=== PATIENT | female | born 2000 | race Caucasian/White ===

== ENCOUNTER → 2020-12-21 09:22 | Outpatient (BNVA) | payer MEDICAID, SELFPAY | PROVIDERS: Visit Provider Nurse Practitioner Family | DX: N93.9 Abnormal uterine and vaginal bleeding, unspecified (principal) | CPT/HCPCS: 81025; 84702 ==

== ENCOUNTER 2021-02-18 13:50 | Observation (INO) | payer MEDICAID, SELFPAY ==
[2021-02-18] VITALS (77 sets, daily range): BP systolic 72–129; BP diastolic 33–74; PULSE 53–135; RESP 15–22; TEMP 36.1–37.5; O2SAT 96–100; BMI 35.0
[2021-02-18] MEDS: lactated ringers 1,000 ML 999 ML IV (10:09)
--- NOTE | 2021-02-18 10:11 | US_ITS ---
WS: [id number] TRANSABDOMINAL PELVIC AND TRANSVAGINAL PELVIC ULTRASOUND HISTORY: miscarriage, check for retained products COMPARISON: None available. Uterus: 9.7 cm x 6.4 cm x 5.6 cm. Enlarged anteverted uterus. Endometrium: 2.6 cm. Thickened heterogeneous endometrial canal. There is a small amount of fluid and heterogeneous products within the endometrium. Very mild increased vascularity. Cannot definitely con firm retained products of the conception. Right ovary: 2.7 cm x 2.4 cm x 1.3 cm. Negative. Left ovary: 2.9 cm x 3.1 cm x 1 cm. Negative. No free fluid. US/US pelvic with transvaginal IMPRESSION: Thickened heterogeneous endometrium. No discrete retained placental tissue. The re is thickening of the endometrium but these findings may all be related to th e recent state. Small amount of retained placental tissue cannot be excluded but there is no large or obvious placental retention.
--- NOTE | 2021-02-18 10:11 | PC.NURSE ---
Call to [facility] in pharmacy and requested expediting Fentanyl verification due to situation.
[2021-02-18 10:12] LABS: Hemoglobin 12.3 g/dL (11.5-15.3); Mean Corpuscular HGB Conc 33.2 g/dL (30.0-36.0); Mean Corpuscular Hemoglobin 28.7 pg (28.0-34.0); Mean Corpuscular Volume 86.2 fL (81-99); Mean Platelet Volume 9.8 fL (7.4-10.4); Platelet Count 346 10^3/cmm (130-400); Red Blood Count 4.29 10^6/uL (4.1-5.3); Red Cell Distribution Width 12.7 % (12.1-15.1)
[2021-02-18] MEDS: fentaNYL 50 mcg/mL INJ 2mL 100 MCG IVP (10:14)
[2021-02-18] MEDS: ondansetron 2 mg/ML SDV 2 mL 4 MG IVP (10:35)
--- NOTE | 2021-02-18 10:51 | PC.NURSE ---
1000 Dr Thapa at bedside doing pelvic exam.
--- NOTE | 2021-02-18 10:54 | PC.NURSE ---
0950 Patient arrived by EMS at this time, patient had very heavy bleeding upon arrival to OB department. Patient went to doctors office on Sunday and was was told that baby had no heart rate via ultrasound. Dr Thapa gave her cytotec to take at home. Patient took first dose on Sunday and start bleeding shortly after taking the first dose. Patient reports having period like bleeding over the last several days since Sunday. Patient states that she was at the grocery store and started having heavy vaginal bleeding and they called EMS. When patient arrived she was found to have soaked through her pants and had large amount of bleeding pooled under her bottom on the EMS cot. Patient was transferred over to OB bed and pants and underwear removed, Patient was found to have 6 large clots measuring the size of a large dinner plate. Dr Thapa was called upon patients arrival to the department and said that he was on his way. Patient was changed into gown and set up for pelvic exam. IV was established in left AC [address] Thapa gave orders for LR bolus and lab to be drawn and orders to be placed. Once Dr Thapa arrived pelvic exam was preformed and patient was given IV pain medicine per Dr Spencer orders. Dr Thapa removed several clots from inside the vagina and ordered ultrasound. Patient was cleaned up and gown changed. Patients bed was changed at this time and fresh chux were placed under patient for accurate calculations of blood loss.
[2021-02-18 10:56] LABS: Absolute Eosinophils 0.5 10^3/cmm (0.0-0.7); Absolute Neutrophil 9.8 10^3/cmm (1.4-6.5); Absolute Segmented Neutrophil 9.1 10/cmm (1.6-7.1); Band Neutrophils Absolute 0.7 10^3/cmm (0.0-1.2); Basophils Absolute 0.1 10^3/cmm (0.0-0.2); Eosinophils 4 %; Lymphocytes 19 %; Lymphocytes Absolute 2.7 10^3/cmm (1.2-3.4); Monocytes Absolute 0.8 10^3/cmm (0.1-0.6); Platelet Estimate Normal (Normal); Segmented Neutrophils 65 %; Total Cells Counted 100 (0-100)
[2021-02-18] MEDS: lactated ringers 1,000 ML 125 ML ×2 (11:20→15:19)
--- NOTE | 2021-02-18 12:41 | PM.OBGYHP ---
Providers/Chief Complaint Chief Complaint: bleeding HPI PHYSICAL SCIENCE PROFESSOR History of Present Illness Deacon Link is a 20 year old female who was noted a couple weeks ago to have a demise at around 6 to 7 weeks gestation. She was given misoprostol at home after explanation of benefits and risks and she took the misoprostol times several doses with passing a large amount of blood and what she felt was tissue and her pain and bleeding stopped. However, beginning last evening she began cramping again and bleeding fairly large amount. She discussed with this physician and he recommended that she come to the hospital. She was brought to the OB department where evaluation found her to have a large amount of clots coming from her vaginal area. Speculum exam was done demonstrating a moderate amount of clots but no significant tissue noted. The uterus was firm at that time and clots were completely gone from the vaginal vault and cervix. Since that time she suddenly began cramping more and passing clots. She has gotten very pale and hypotensive. Initial hemoglobin was 12 and follow-up hemoglobin is pending. Ultrasound has been done but results are pending. Again, the vaginal vault was swept with bimanual exam and moderate clots removed from the vaginal area and the uterus remained firm. It does feel smaller than it did however. Present Details Date of Last Menstrual Period: 11/11/20 Calculated Date of Delivery: 08/18/21 Gestational Age Based on Last Menstrual Period: 14 Review of Systems Const: Reports: fatigue; Denies: fever(s) or chills Card: Reports: pre-syncope (Blood pressure has dropped since passing a lot of blood clots. She is pale); Denies: chest pain, palpitations, edema or orthopnea Resp: Denies: dyspnea, productive cough or non-productive cough GI: Reports: abdominal pain (Pain over the suprapubic area with cramps occasionally.); Denies: nausea, vomiting, dysphagia, diarrhea or constipation : Reports: vaginal bleeding (Status post demise at around 7 weeks gestation.) Musc: Denies: back pain, extremity pain or joint pain Neuro: Denies: weakness in extremities, difficulty walking or involuntary movements Psych: Reports: anxiety Medications/Allergies Home Medications Medication Instructions Recorded Confirmed Last Taken Type No Known Home Medications 12/21/20 12/21/20 Unknown History albuterol sulfate 90 mcg/actuation 2 puff INHALATION Q6H PRN #8.5 g 12/21/20 12/21/20 Unknown Rx aerosol inhaler amoxicillin 875 mg tablet 875 mg PO BID #20 tab 12/21/20 12/21/20 Unknown Rx promethazine-DM 6.25 mg-15 mg/5 mL 5 ml PO Q6H PRN #150 ml 12/21/20 12/21/20 Unknown Rx oral syrup Allergies Allergy/AdvReac Type Severity Reaction Status Date / Time hydrocodone Allergy Intermediate rash Verified 01/21/21 10:26 PFSH PHYSICAL SCIENCE PROFESSOR PFSH: Family History Father Hypertension Lung disease Mother Stroke Vitals/I&O/Wt Last Vital Signs Temp 96.9 F L 02/18/21 09:50 Pulse 75 02/18/21 12:35 Resp 18 02/18/21 10:14 BP 94/51 02/18/21 12:33 Pulse Ox 100 02/18/21 12:35 Weight last 48 hrs Weight 89.811 kg Physical Exam Const: COMMON NORMALS: well nourished GENERAL APPEARANCE: cooperative, anxious and ill appearing (She is fairly pale and mildly diaphoretic.) ORIENTATION/CONSCIOUSNESS: Yes awake Resp: COMMON NORMALS: normal respiratory effort, No retractions, No use of accessory muscles and clear to auscultation bilaterally Cardio: COMMON NORMALS: regular rate and regular rhythm GI: COMMON NORMALS: Normal to inspection, nondistended, normoactive bowel sounds present and Soft to palpation; negative for non-tender (Suprapubic tenderness to palpation.) : EXTERNAL FEMALE EXAM: Yes normal appearance of the urethra SPECULUM EXAM - VAGINA: Yes vaginal bleeding (Moderate blood clots in the vaginal vault which have been cleared out twice) Amount: large/heavy SPECULUM EXAM - CERVIX: Yes Cervical os open (Approximately 1 to 2 cm.) and No Tissue present in the cervical os Back/Pelvis: COMMON NORMALS: thoracic and lumbar spine normal to inspection; negative for no CVA tenderness Extremity: COMMON NORMALS: normal to inspection, no calf tenderness and no pedal edema Neuro: COMMON NORMALS: moves all extremities, no focal motor deficits and no sensory deficits noted Psych: COMMON NORMALS: cooperative MOOD & AFFECT: Yes anxious Data : 02/18/21 10:00 A&P Assessment and plan (1) Spontaneous complicated by delayed or excessive hemorrhage: Patient was given misoprostol as an outpatient approximately 2 weeks ago which she took and passed what she felt was tissue. However, she began bleeding and cramping this morning on the day she was due to follow-up with a another quantitative hCG. It is felt that she continues to have tissue in the uterus and may very well require dilatation and curettage. I discussed with Dr. Dean and he will be on standby if needed. Status: Acute Attestations Medical Necessity Statement*: Patient requires at least observation stay in the hospital. We will proceed with what we need to do to stop her bleeding and monitor hemoglobin hematocrit and treat as indicated. Coding Level of Care Code Acute Roll Up Operator for Mike Polanco Diagnoses Spontaneous complicated by delayed or excessive hemorrhage O03.6
[2021-02-18 12:51] LABS: Hemoglobin 9.3 g/dL (11.5-15.3); Mean Corpuscular HGB Conc 33.2 g/dL (30.0-36.0); Mean Corpuscular Hemoglobin 29.2 pg (28.0-34.0); Mean Corpuscular Volume 87.8 fL (81-99); Mean Platelet Volume 10.1 fL (7.4-10.4); Platelet Count 312 10^3/cmm (130-400); Red Blood Count 3.19 10^6/uL (4.1-5.3); Red Cell Distribution Width 12.6 % (12.1-15.1); White Blood Count 26.2 10^3/uL (4.0-10.0)
--- NOTE | 2021-02-18 13:32 | PC.NURSE ---
1325 Patient taken down to surgery at this time, handoff was performed to RUBIO Woodard and Dr Cowan.
--- NOTE | 2021-02-18 13:42 | PC.NURSE ---
All of patients chux, and linens were measured for blood loss at this time, she has a calculated EBL of 1400 at this time, Dr Dean and Dr Thapa were both notified at this time
[2021-02-18 14:04] LABS: Hematocrit 29.1 % (37.0-47.0); Hemoglobin 9.5 g/dL (11.5-15.3)
--- NOTE | 2021-02-18 14:07 | ANES.PREANE2 ---
Pre-Anesthetic Assessment Pre-Anesthetic Assessment: Height/Weight: Height 1.6 m Weight 89.811 kg Temp Pulse Resp BP Pulse Ox 96.9 F L 76 18 104/52 100 02/18/21 09:50 02/18/21 13:15 02/18/21 10:14 02/18/21 13:12 02/18/21 13:15 Proposed Procedure: Operation Date: 02/18/21 14:40 Proposed Procedures p Dilation And Curettage (D&C)(Not Applicable) - Camacho Dean MD Was Beta Walker taken within 24 hours: N/A Was Clonidine taken within 24 hours: N/A Social: Social History: Tobacco and No alcohol Exam: Pre-Anes Outpt Exam: alert, oriented x 3, clear to auscultation bilaterally and regular rate & rhythm Airway: Submandibular: WNL Cervical ROM: WNL MP: 2 Dentition: False CV/HEM: CV/HEM: Anemia Anesthetic Plan: ASA status: 2E Anesthesia: General Other: demise, bleeding Risk of > 500 ml blood loss (7ml/kg in children): Yes, adequate IV access and fluids planned PFSH Anesthesia PFSH: Family History Father Hypertension Lung disease Mother Stroke Female Reproductive History: Date of last menstrual period: 11/11/20 Data Anesthesia CBC & Chem 7: 02/18/21 13:40 Other Labs: Laboratory Results - last 48 hr 02/18/21 02/18/21 02/18/21 10:00 10:00 12:36 WBC 14.0 H 26.2 H RBC 4.29 3.19 L Hgb 12.3 9.3 L Hct 37.0 28.0 L MCV 86.2 87.8 MCH 28.7 29.2 MCHC 33.2 33.2 RDW 12.7 12.6 Plt Count 346 312 MPV 9.8 10.1 Total Counted 100 Atypical Lymphs % 0.0 Absolute Neutrophils 9.8 H Segmented Neutrophils 65 Abs Segm Neuts (Man) 9.1 H Band Neutrophils 5.0 Abs Band Neuts (Man) 0.7 Absolute Lymphocytes 2.7 Lymphocytes (Manual) 19 Monocytes (Manual) 6.0 Absolute Monocytes 0.8 H Eosinophils (Manual) 4 Absolute Eosinophils 0.5 Basophils (Manual) 1.0 Absolute Basophils 0.1 Platelet Estimate Normal Ser , Semi-Qnt Blood Type O Negative Rho(D) Type Negative / 0 Antibody Screen Negative Crossmatch See Detail 02/18/21 02/18/21 12:36 13:40 WBC RBC Hgb 9.5 L Hct 29.1 L MCV MCH MCHC RDW Plt Count MPV Total Counted Atypical Lymphs % Absolute Neutrophils Segmented Neutrophils Abs Segm Neuts (Man) Band Neutrophils Abs Band Neuts (Man) Absolute Lymphocytes Lymphocytes (Manual) Monocytes (Manual) Absolute Monocytes Eosinophils (Manual) Absolute Eosinophils Basophils (Manual) Absolute Basophils Platelet Estimate Ser , Semi-Qnt 2831.00 Blood Type Rho(D) Type Antibody Screen Crossmatch Cardiac Studies: No Data to Display
--- NOTE | 2021-02-18 15:02 | ANE.PACU2 ---
Inpatient post-anesthesia follow up: Airway intact: Yes Vital signs: Temperature 98 F Pulse Rate 73 Respiratory Rate 22 Blood Pressure 127/65 Pulse Oximetry 98 Oxygen Delivery Me thod Room Air Oxygen Flow Rate Fraction of Inspir ed Oxygen Hydration adequate: Yes Nausea and vomiting: No Pain level: 2 Mental status: Baseline
[2021-02-18] MEDS: acetaminophen 325 mg Tablet 650 MG PO (15:19)
[2021-02-18] MEDS: diphenhydrAMINE 50 mg/mL SDV 1mL 25 MG IVP (15:19)
--- NOTE | 2021-02-18 15:51 | PC.NURSE ---
Patient back to OB department from PACU at this time.
--- NOTE | 2021-02-18 17:54 | PM.OP ---
Operative Report Date of procedure: February 18, 2021 Pre-op Diagnosis: Missed with Hemorrhage Post-op diagnosis: same Procedure Done: Dilation and curettage Specimens removed/disposition: Products of conception and multiple clots Pathology: other (Products of conception) Surgeon: Camacho Dean Anesthesia: General Estimated blood loss (mL): 100 Complications: None Condition: stable Disposition: floor (EVENTS ADMINISTRATIVE ASSISTANT) Brief History: The patient is a 20-year-old was unsure of her estimated gestational age. She had a recent ultrasound that showed that her gestational sac was about 6 to 7 weeks. She been having some moderate bleeding through the week, but on the day of this of the procedure her bleeding was substantially worse. She came into the hospital and was noted to have multiple episodes of large amounts of clots. They were weighed by the nurse and was found to be over 1500 and milliliters of bleeding. She also had several episodes where her blood pressure dropped and she became somewhat listless. Dr. Thapa contacted me and asked if I would come to perform a D&C. I discussed the risks of the procedure with the patient and her partner. We discussed the risks of bleeding, perforation, and infection. They had no further questions and wished to proceed. Procedure: The patient was brought back to the operating room where general anesthesia was performed. She was then prepped in usual fashion. A bimanual exam was performed and she was found to have an anteflexed uterus. A weighted speculum was placed. A vaginal retractor was placed anteriorly. A tenaculum placed on the anterior lip of the cervix. A large clot with tissue was noted at the os. I used ring forceps to remove the tissue then performed a curettage both with suction and without suction the remainder of the uterus removing tissue until there was an excellent uterine cry in all 4 quadrants. The tenaculum was then removed, no bleeding was noted. There was minimal bleeding at the end of the procedure. Associated Problem List Diagnoses (1) Spontaneous complicated by delayed or excessive hemorrhage:
[2021-02-19] MEDS: lactated ringers 1,000 ML 250 ML IV (01:14)
[2021-02-19 06:00] VITALS: BP 103/49
[2021-02-19 06:35] LABS: Basophils % 0.5 %; Eosinophils # 0.1 10^3/uL (0.0-0.8); Eosinophils % 2.4 %; Hematocrit 21.6 % (37.0-47.0); Hemoglobin 7.2 g/dL (11.5-15.3); Lymphocytes # 1.9 10^3/uL (0.8-4.8); Lymphocytes % 31.8 %; Mean Corpuscular HGB Conc 33.3 g/dL (30.0-36.0); Mean Corpuscular Hemoglobin 29.3 pg (28.0-34.0); Mean Corpuscular Volume 87.8 fL (81-99); Mean Platelet Volume 9.8 fL (7.4-10.4); Monocytes # 0.3 10^3/uL (0.2-0.9); Monocytes % 5.5 %; Neutrophils # 3.48 10^3/uL (1.8-7.7); Neutrophils % 59.5 %; Nucleated Red Blood Cells % 0 %; Platelet Count 196 10^3/cmm (130-400); Red Blood Count 2.46 10^6/uL (4.1-5.3); Red Cell Distribution Width 12.9 % (12.1-15.1); White Blood Count 5.9 10^3/uL (4.0-10.0)
--- NOTE | 2021-02-19 08:19 | PM.OBGYDC ---
Discharge Providers PRINCIPAL CLOUD ARCHITECT Date of Admission: 02/18/21 13:50 Date of Discharge: 02/19/21 Attending Provider at Admission: Josué Thapa MD Attending Provider at Discharge: Josué Thapa MD Diagnoses at Discharge Discharge Diagnosis (1) Spontaneous complicated by delayed or excessive hemorrhage: Status: Acute (2) Anemia: Status: Acute Reason for Visit Reason for Visit: bleeding Hospital Course Hospital Course This 20-year-old female patient was admitted yesterday with heavy bleeding and cramping. She had discovered a demise at around 6 to 7 weeks gestation and this was attempted to be resolved as an outpatient with misoprostol. She had passed a fair amount of clots and she felt tissue and stopped and therefore she felt she was completed. However, on the day she was due to come in for a follow-up quantitative hCG be she began bleeding heavily and cramping heavily. She came to the OB department where she was evaluated by the nurses and this physician and found to be bleeding heavily. The vaginal vault was evaluated with a large amount of clots which were removed. She resumed bleeding shortly after that and a decision was made to proceed with dilatation and curettage. Dr. Dean was consulted for that. That was accomplished yesterday. She did receive 1 unit of packed red blood cells as she was very pale and hypotensive. That has resolved, she is up ambulating well and tolerating a regular diet. Her hemoglobin this morning was 7.2 but presently she is asymptomatic from that and desires to go home. She is felt to be stable for discharge home. RhoGam is pending and that will be administered prior to discharge. Physical Exam Const: COMMON NORMALS: no acute distress and average body habitus GENERAL APPEARANCE: cooperative and comfortable; not ill appearing HENMT: COMMON NORMALS: moist oral mucous membranes Resp: COMMON NORMALS: normal respiratory effort, No retractions, No use of accessory muscles and clear to auscultation bilaterally AUSCULTATION: clear to auscultation bilaterally Cardio: COMMON NORMALS: regular rate, regular rhythm and No murmurs present (Cardio) RATE: regular rate RHYTHM: regular rhythm GI: COMMON NORMALS: Normal to inspection, nondistended, normoactive bowel sounds present, Soft to palpation, non-tender and no masses PALPATION: Yes Soft to palpation Extremity: COMMON NORMALS: normal to inspection, full ROM, no calf tenderness and no pedal edema Neuro: COMMON NORMALS: moves all extremities, no focal motor deficits and no sensory deficits noted Psych: COMMON NORMALS: mental status grossly normal, Normal thought process present, cooperative and normal affect THOUGHT PROCESS: Normal thought process present Skin: COMMON NORMALS: no rashes or lesions noted GENERAL SKIN EXAM: no rashes or lesions noted Discharge Data Data Completed and Pending: Completed Studies During Hospitalization Category Date Time Status US pelvic with tr ansvaginal Stat Ultrasound 02/18/21 10:11 Completed Pending at discharge Category Date Time Status Complete Crossmat ch Stat Lab 02/18/21 10:00 Results Leukocyte Reduced RBC Routine Lab 02/18/21 10:00 Results Rhogam [Rho D Imm une Globulin] Rout ine Lab 02/18/21 10:00 Results Type and Screen S tat Lab 02/18/21 10:00 Results Labs from last 24 hours 02/19/21 02/18/21 02/18/21 06:24 13:40 12:36 WBC 5.9 RBC 2.46 L Hgb 7.2 L 9.5 L Hct 21.6 L 29.1 L MCV 87.8 MCH 29.3 MCHC 33.3 RDW 12.9 Plt Count 196 MPV 9.8 Neut % (Auto) 59.5 Lymph % (Auto) 31.8 [place] % (Auto) 5.5 Eos % (Auto) 2.4 Baso % (Auto) 0.5 Neut # (Auto) 3.48 Lymph # (Auto) 1.9 [place] # (Auto) 0.3 Eos # (Auto) 0.1 Baso # (Auto) 0.0 Nucleated RBC % (a uto) 0 Total Counted Atypical Lymphs % Absolute Neutrophi ls Segmented Neutroph ils Abs Segm Neuts (Ma n) Band Neutrophils Abs Band Neuts (Ma n) Absolute Lymphocyt es Lymphocytes (Manua l) Monocytes (Manual) Absolute Monocytes Eosinophils (Manua l) Absolute Eosinophi ls Basophils (Manual) Absolute Basophils Nucleated RBCs # 0.0 Platelet Estimate Ser , Alejandro i-Qnt 2831.00 Blood Type Rho(D) Type Antibody Screen Crossmatch 02/18/21 02/18/21 02/18/21 12:36 10:00 10:00 WBC 26.2 H 14.0 H RBC 3.19 L 4.29 Hgb 9.3 L 12.3 Hct 28.0 L 37.0 MCV 87.8 86.2 MCH 29.2 28.7 MCHC 33.2 33.2 RDW 12.6 12.7 Plt Count 312 346 MPV 10.1 9.8 Neut % (Auto) Lymph % (Auto) [place] % (Auto) Eos % (Auto) Baso % (Auto) Neut # (Auto) Lymph # (Auto) [place] # (Auto) Eos # (Auto) Baso # (Auto) Nucleated RBC % (a uto) Total Counted 100 Atypical Lymphs % 0.0 Absolute Neutrophi ls 9.8 H Segmented Neutroph ils 65 Abs Segm Neuts (Ma n) 9.1 H Band Neutrophils 5.0 Abs Band Neuts (Ma n) 0.7 Absolute Lymphocyt es 2.7 Lymphocytes (Manua l) 19 Monocytes (Manual) 6.0 Absolute Monocytes 0.8 H Eosinophils (Manua l) 4 Absolute Eosinophi ls 0.5 Basophils (Manual) 1.0 Absolute Basophils 0.1 Nucleated RBCs # Platelet Estimate Normal Ser , Alejandro i-Qnt Blood Type O Negative Rho(D) Type Negative / 0 Antibody Screen Negative Crossmatch See Detail Vitals: Last Vital Signs Temp 99.0 F 02/18/21 21:40 Pulse 88 02/18/21 21:40 Resp 15 02/18/21 21:40 BP 103/49 02/19/21 06:00 Pulse Ox 96 02/18/21 21:40 Discharge Plan Discharge Patient Disposition: Home Condition: Stable Prescriptions: New ferrous sulfate 325 mg (65 mg iron) tablet,delayed release (DR/EC) 325 mg PO BID Qty: 60 RF: 2 Continued promethazine-DM 6.25-15 mg/5 mL syrup 5 ml PO Q6H PRN (Reason: cough) Qty: 150 RF: 0 amoxicillin 875 mg tablet 875 mg PO BID Qty: 20 RF: 0 albuterol sulfate [ProAir HFA] 90 mcg/actuation HFA aerosol inhaler 2 puff inhalation Q6H PRN (Reason: shortness of breath or wheezing) Qty: 8.5 RF: 0 No Action No Known Home Medications RF: 0 Discharge Orders: Discharge Order (Routine); Ordered 02/19/21 Ordered By: Josué Thapa Referrals: Josué Thapa MD [Physician] - 2 weeks Discharge Diet: Usual diet Discharge Activity: Resume usual activity Patient Instructions: Opioid Safety Discharge Attestations PRINCIPAL CLOUD ARCHITECT Time Spent in Discharge Care*: less than 30 min Specific Discharge Activities: Specific discharge activities: educating patient, educating and/or supporting family/caregiver, documenting/other paperwork and evaluating patient/reviewing data Coding Level of Care Code Acute Blower Installer for Chg Fwd Diagnoses Spontaneous complicated by delayed or excessive hemorrhage O03.6 Anemia D64.9
[2021-02-19 08:56] VITALS: BP 119/57; PULSE 84; RESP 16; TEMP 37.2; O2SAT 100
[2021-02-19 09:06] VITALS: BP 119/57; PULSE 84; RESP 16; TEMP 37.2; O2SAT 100
== END 2021-02-19 09:15 | disposition home or self-care (01) ==
LOC: OPOB 14:37 → OBGYN 15:09
PROVIDERS: Anesthesiology; Family Medicine; Admitting Provider Family Medicine; Visit Provider Family Medicine
PROC: (CPT 58120; principal; 2021-02-18 14:30)
DX: O03.6 Delayed or excessive hemorrhage following complete or unspecified spontaneous abortion (principal); Z3A.01 Less than 8 weeks gestation of pregnancy
CPT/HCPCS: 59820; 12345; 36430; 76830; 76856; 84702; 85007; 85014; 85018; 85025; 85027; 86850; 86900; 86920; 88305; 90384; 99211; G0378; J1200; J2405; J2704; J3010; P9016; P9041

== ENCOUNTER 2022-02-19 21:54 | Emergency (ER) | payer MEDICAID, SELFPAY ==
[2022-02-19 22:21] VITALS: BP 106/66; PULSE 107; RESP 16; TEMP 38.2; O2SAT 94
[2022-02-19 22:55] VITALS: BP 134/77; PULSE 96; RESP 18; O2SAT 97
--- NOTE | 2022-02-19 22:59 | W.ED.ABDPA2 ---
HPI - Abdominal Pain General: Chief Complaint: Fever Stated Complaint: Dizzy/back pain Time Seen by Provider: 02/19/22 22:51 History of Present Illness: Patient is a 21-year-old female that comes to the ED with fever and right flank pain. Patient says approximately a week ago she started developing right flank pain that has continued to progress. She rates the pain in her right flank currently a 7 out of 10. She says the flank pain does have some episodes of more intense pain and says earlier today before she arrived to the ED the flank pain was a lot worse. Today patient started developing a headache and had a fever of 103 at home. She has been taking Tylenol to help with her fevers and says she had a dose of Tylenol at 8:30 PM tonight. Endorses feeling some dizziness today as well. Denies any dysuria, hematuria, nausea, vomiting. Denies any vaginal bleeding and says her last period was approximately 2 weeks ago. Associated Symptoms: Reports fever(s); Denies chills, constipation, diarrhea, dysuria, hematochezia, hematuria, nausea and vomiting Related Data: Date of Last Menstrual Period: 11/11/20 Review of Systems Const: Reports: fever(s); Denies: chills or fatigue Eyes: Denies: change in vision or eye discomfort ENMT: Denies: throat pain, odynophagia, nasal discharge or nasal congestion Card: Denies: chest pain, palpitations, edema, swelling of feet/ankles, dyspnea on exertion or orthopnea Resp: Denies: dyspnea, productive cough or non-productive cough GI: Denies: abdominal pain, nausea, vomiting, diarrhea, constipation or hematochezia : Reports: flank pain (Right flank); Denies: dysuria or hematuria Musc: Denies: neck pain, back pain or extremity swelling Skin/Breast: Denies: rash or new lesions Neuro: Reports: headache(s) and dizziness; Denies: numbness in extremities or weakness in extremities PFSH ED PFSH: Medical History No pertinent family history Surgical History No pertinent past surgical history Family History Father Hypertension Lung disease Mother Stroke Female Reproductive History: Date of last menstrual period: 11/11/20 Physical Exam Const: COMMON NORMALS: no acute distress, patient oriented x3 and alert GENERAL APPEARANCE: cooperative and comfortable HENMT: COMMON NORMALS: normocephalic HEAD & SCALP: normocephalic MOUTH: Normal oral and palatal mucosa present THROAT: posterior oropharynx normal and uvula midline Eye: COMMON NORMALS: Equal, round and reactive pupils present and conjunctivae normal CONJUNCTIVA: Yes conjunctivae normal PUPIL: Yes Equal, round and reactive pupils present Neck/C-Spine: COMMON NORMALS: supple GENERAL: Yes normal visual inspection Resp: COMMON NORMALS: normal respiratory effort, No retractions, No use of accessory muscles and clear to auscultation bilaterally AUSCULTATION: clear to auscultation bilaterally Cardio: COMMON NORMALS: regular rate, regular rhythm, S1 normal heart sound present, S2 normal heart sound present, No gallops present (Cardio), No clicks present (Cardio), No murmurs present (Cardio) and Peripheral pulses 2+ throughout RATE: regular rate RHYTHM: regular rhythm HEART SOUNDS: S1 normal heart sound present and S2 normal heart sound present PERIPHERAL PULSES: Peripheral pulses 2+ throughout GI: COMMON NORMALS: Normal to inspection, nondistended, normoactive bowel sounds present, Soft to palpation, non-tender and no masses PALPATION: Yes Soft to palpation : BLADDER/KIDNEY EXAM: Yes CVA tenderness on the right Back/Pelvis: GENERAL BACK: Yes CVA tenderness Extremity: COMMON NORMALS: normal to inspection Neuro: COMMON NORMALS: patient oriented x3 and moves all extremities SENSORIUM/ORIENTATION: Yes alert Skin: GENERAL SKIN EXAM: dry skin Course Vital Signs: Vital signs: Vital Signs Temperature 100.8 F H 02/19/22 22:21 Pulse Rate 87 02/20/22 01:39 Respiratory Rate 16 02/20/22 01:39 Blood Pressure 108/67 02/20/22 01:39 Pulse Oximetry 97 02/20/22 01:39 MDM - Abdominal Pain Medical Decision Making Patient is a 21-year-old female that comes to the ED with fever and right flank pain. She said right flank pain for approximately a week and today she developed a fever and a headache. Temp of 100.8 but the rest of vitals are stable. Patient appears nontoxic and in no acute distress. She does have some right CVA tenderness but the rest of exam is benign. White blood cell count on the rest of CBC and CMP were unremarkable. UA shows significant signs of UTI. Patient was given 1 L of IV fluids, Rocephin and Toradol while here in the ED. Her symptoms improved and she was stable for discharge home and outpatient treatment. She was diagnosed with pyelonephritis and sent home with a prescription for ciprofloxacin. She was told to follow-up with her PCP in the next week for reevaluation. She was given strict return to ED precautions. Patient understood and agreed with plan. Lab Data I reviewed the patient's lab results. : 02/19/22 23:30 02/19/22 23: Labs/Radiology: Laboratory Results WBC 8.4 10^3/uL (4.0-10.0) 02/19/22: RBC 4.21 10^6/uL (4.1-5.3) 02/19/22: Hgb 11.8 g/dL (11.5-15.3) 02/19/22: Hct 34.6 % (37.0-47.0) L 02/19/22: MCV 82.2 fl (81-99) 02/19/22: MCH 28.0 pg (28.0-34.0) 02/19/22 23: MCHC 34.1 g/dL (30.0-36.0) 02/19/22 23: RDW 14.4 % (12.1-15.1) 02/19/22: Plt Count 215 10^3/cmm (130-400) 02/19/22 23: MPV 10.2 fL (7.4-10.4) 02/19/22 23: Neut % (Auto) 73.7 % 02/19/22: Lymph % (Auto) 14.7 % 02/19/22: [place] % (Auto) 10.6 % 02/19/22 23: Eos % (Auto) 0.4 % 02/19/22: Baso % (Auto) 0.2 % 02/19/22: Neut # (Auto) 6.20 10^3/uL (1.8-7.7) 02/19/22 23:30 Lymph # (Auto) 1.2 10^3/uL (0.8-4.8) 02/19/22 23:30 [place] # (Auto) 0.9 10^3/uL (0.2-0.9) 02/19/22 23:30 Eos # (Auto) 0.0 10^3/uL (0.0-0.8) 02/19/22 23:30 Baso # (Auto) 0.0 10^3/uL (0.0-0.1) 02/19/22 23:30 Nucleated RBC % (auto) 0 % 02/19/22 23:30 Nucleated RBCs # 0.0 /100WBC 02/19/22 23:30 Sodium 134 mmol/L (136-145) L 02/19/22 23: Potassium 3.4 mmol/L (3.5-5.1) L 02/19/22 23:30 Chloride 100 mmol/L (98-107) 02/19/22 23: Carbon Dioxide 20 mmol/L (22-29) L 02/19/22 23:30 Anion Gap 17.4 (5-19) 02/19/22 23:30 BUN 7 mg/dL (6-20) 02/19/22 23:30 Creatinine 0.7 mg/dL (0.5-0.9) 02/19/22 23:30 GFR Calculation 103.7 mL/min (90-130) 02/19/22 23:30 Glucose 110 mg/dL (65-115) 02/19/22 23:30 Calculated Osmolality 277 mOsm/kg (285-295) L 02/19/22 23: Calcium 8.2 mg/dL (8.5-10.5) L 02/19/22 23:30 Total Bilirubin 0.4 mg/dL (0.15-1.2) 02/19/22 23:30 AST 12 U/L (0-32) 02/19/22 23:30 ALT 12 U/L (0-33) 02/19/22 23:30 Alkaline Phosphatase 79 IU/L (35-105) 02/19/22 23:30 Total Protein 6.6 g/dL (6.6-8.7) 02/19/22 23: Albumin 3.7 g/dL (3.5-5.2) 02/19/22 23:30 Globulin 2.9 g/dL (1.3-4.6) 02/19/22 23:30 Lipase 13 U/L (13-60) 02/19/22 23:30 HCG, Qual Negative (Negative) 02/19/22 23:30 Urine Color Yellow (Yellow) 02/19/22 23:00 Urine Appearance Hazy (CLEAR) A 02/19/22 23:00 Urine pH 5 (5-7) 02/19/22 23:00 Ur Specific [place] 1.015 (1.005-1.030) 02/19/22 23:00 Urine Protein 1+ (Negative) H 02/19/22 23:00 Urine Glucose (UA) Norm (Normal) 02/19/22 23:00 Urine Ketones 1+ (Negative) H 02/19/22 23:00 Urine Blood 2+ (Negative) H 02/19/22 23:00 Urine Nitrate Positive (Negative) H 02/19/22 23:00 Urine Bilirubin Neg (Negative) 02/19/22 23:00 Urine Urobilinogen 1 mg/dL (Negative) H 02/19/22 23:00 Ur Leukocyte Esterase 2+ (Negative) H 02/19/22 23:00 Urine RBC 5-10 /hpf (0-2) H 02/19/22 23:00 Urine WBC 80-100 /hpf (0-5) H 02/19/22 23:00 Ur Squamous Epith Cells 5-10 /hpf (0-5) H 02/19/22 23:00 Amorphous Sediment Not Reportable 02/19/22 23:00 Urine Bacteria 3+ /hpf (NONE) H 02/19/22 23:00 Urine Mucus Trace /hpf 02/19/22 23:00 Discharge Plan Discharge Patient Disposition: Home Clinical Impression: Pyelonephritis Condition: Stable Prescriptions: New ciprofloxacin HCl 500 mg tablet 500 mg PO BID 7 Days Qty: 14 0RF ibuprofen 800 mg tablet 800 mg PO Q8H PRN (Reason: pain) Qty: 20 0RF ondansetron 4 mg tablet,disintegrating 4 mg PO Q8H PRN (Reason: nausea and vomiting) Qty: 20 0RF No Action promethazine-DM 6.25-15 mg/5 mL syrup 5 ml PO Q6H PRN (Reason: cough) Qty: 150 0RF amoxicillin 875 mg tablet 875 mg PO BID Qty: 20 0RF albuterol sulfate [ProAir HFA] 90 mcg/actuation HFA aerosol inhaler 2 puff inhalation Q6H PRN (Reason: shortness of breath or wheezing) Qty: 8.5 0RF ferrous sulfate 325 mg (65 mg iron) tablet,delayed release (DR/EC) 325 mg PO BID Qty: 60 2RF Discharge Orders: Discharge ED (Routine); Ordered 02/20/22 Ordered By: Hany Schwab Discharge Diet: Regular Discharge Activity: Increase activity as tolerated Patient Instructions: Urinary Tract Infection in Women (DC), Pyelonephritis Activity Restrictions/Additional Instructions: Follow-up with medical provider as directed in the next 3 to 5 days for reevaluation. Take medications as prescribed. Drink plenty of fluids and stay hydrated. Return to the ER or your medical provider if condition worsens. Please read and understand discharge instructions. Thank you for choosing [facility] for your healthcare needs today. Please realize this is an emergency room and that we are providing you with a medical screening exam and this may not be complete and all inclusive of all the testing and or work up that you may need to determine your ailment or severity of your illness. It is very important that you follow up as instructed or that you return to the Emergency Department should you have concerns or if your condition changes or worsens in any way. Coding Level of Care Code ED Delivery Of Shopping News for Mike Polanco Exam Comprehensive
[2022-02-19] MEDS: sodium chloride 0.9% 1,000 ML 999 ML IV (23:18)
[2022-02-19 23:25] VITALS: BP 110/54; PULSE 83; RESP 16; O2SAT 97
[2022-02-19 23:30] VITALS: BP 105/55; PULSE 90; O2SAT 94
[2022-02-19 23:46] LABS: Urine Appearance Hazy (CLEAR); Urine Color Yellow (Yellow)
[2022-02-19 23:47] LABS: Add Urine Microscopic? YES; Bilirubin Urine Neg (Negative); Blood Urine 2+ (Negative); Glucose Urine UA Norm (Normal); Ketones Urine 1+ (Negative); Leukocyte Esterase Urine 2+ (Negative); Nitrate Urine Positive (Negative); Protein Urine 1+ (Negative); Specific Gravity, Urine 1.015 (1.005-1.030); Urobilinogen Urine 1 mg/dL (Negative); pH Urine 5 (5-7)
[2022-02-19 23:48] LABS: Add Urine Culture? Yes; Bacteria Urine 3+ /hpf; Mucus Urine TRACE /hpf; WBC Urine 80-100 /hpf (0-5)
[2022-02-19 23:57] LABS: HCG, Serum Qual Negative (Negative)
[2022-02-20] VITALS: BP 140/67; PULSE 93; RESP 16; O2SAT 96
[2022-02-20] LABS: Alanine Aminotransferase 12 U/L (0-33); Albumin Level 3.7 g/dL (3.5-5.2); Alkaline Phosphatase 79 IU/L (35-105); Anion Gap 17.4 (5-19); Aspartate Amino Transferase 12 U/L (0-32); Basophils % 0.2 %; Blood Urea Nitrogen 7 mg/dL (6-20); Calcium 8.2 mg/dL (8.5-10.5); Carbon Dioxide 20 mmol/L (22-29); Chloride 100 mmol/L (98-107); Eosinophils % 0.4 %; Globulin 2.9 g/dL (1.3-4.6); Glomerular Filtration Rate 103.7 mL/min (90-130); Glucose 110 mg/dL (65-115); Hematocrit 34.6 % (37.0-47.0); Hemoglobin 11.8 g/dL (11.5-15.3); Lipase 13 U/L (13-60); Lymphocytes # 1.2 10^3/uL (0.8-4.8); Lymphocytes % 14.7 %; Mean Corpuscular HGB Conc 34.1 g/dL (30.0-36.0); Mean Corpuscular Volume 82.2 fl (81-99); Mean Platelet Volume 10.2 fL (7.4-10.4); Monocytes # 0.9 10^3/uL (0.2-0.9); Monocytes % 10.6 %; Neutrophils % 73.7 %; Nucleated Red Blood Cells % 0 %; Osmolality Calculated 277 mOsm/kg (285-295); Platelet Count 215 10^3/cmm (130-400); Potassium 3.4 mmol/L (3.5-5.1); Red Blood Count 4.21 10^6/uL (4.1-5.3); Red Cell Distribution Width 14.4 % (12.1-15.1); Sodium 134 mmol/L (136-145); Total Bilirubin 0.4 mg/dL (0.15-1.2); Total Protein 6.6 g/dL (6.6-8.7); White Blood Count 8.4 10^3/uL (4.0-10.0)
[2022-02-20 00:30] VITALS: BP 104/52; PULSE 83; RESP 18; O2SAT 96
[2022-02-20] MEDS: cefTRIAXone 1,000 MG in sodium chloride 0.9% (plus) 50 ML 100 MG IV (00:46)
[2022-02-20] MEDS: ketorolac 30 mg/mL INJ IVP (00:46)
[2022-02-20 01:39] VITALS: BP 108/67; PULSE 87; RESP 16; O2SAT 97
== END 2022-02-20 01:44 | disposition home or self-care (01) ==
PROVIDERS: Emergency Provider Physician Assistant
DX: N12 Tubulo-interstitial nephritis, not specified as acute or chronic (principal)
CPT/HCPCS: 80053; 81001; 83690; 84703; 85025; 87077; 87086; 87186; 96365; 96375; 99284; J0696; J1885; J7030

== ENCOUNTER → 2023-02-27 13:48 | Outpatient (BNVA) | payer MEDICAID, SELFPAY | PROVIDERS: Visit Provider Nurse Practitioner Family | DX: M79.671 Pain in right foot (principal) | CPT/HCPCS: 73630 ==

== ENCOUNTER → 2023-07-02 10:19 | Outpatient (BNVA) | payer MEDICAID, SELFPAY | PROVIDERS: PCP Nurse Practitioner Family; Visit Provider Nurse Practitioner Family | DX: D64.9 Anemia, unspecified (principal); R53.1 Weakness; R42 Dizziness and giddiness | CPT/HCPCS: 80053; 82306; 82607; 82746; 83550 ==

== ENCOUNTER → 2023-08-27 13:00 | Outpatient (BNVA) | payer MEDICAID, SELFPAY | PROVIDERS: PCP Nurse Practitioner Family; Visit Provider Obstetrics & Gynecology | DX: Z01.419 Encounter for gynecological examination (general) (routine) without abnormal findings (principal) | CPT/HCPCS: 87624 ==

== ENCOUNTER → 2024-05-14 17:02 | Outpatient (BNVA) | payer MEDICAID, SELFPAY | PROVIDERS: PCP Nurse Practitioner Family; Visit Provider Nurse Practitioner Family | DX: R42 Dizziness and giddiness (principal) | CPT/HCPCS: 80053; 81025; 82607; 84443; 85025 ==

== ENCOUNTER → 2024-05-15 08:19 | Outpatient (BNVA) | payer MEDICAID, SELFPAY | PROVIDERS: PCP Nurse Practitioner Family; Visit Provider Nurse Practitioner Family | DX: R10.9 Unspecified abdominal pain (principal) | CPT/HCPCS: 81000 ==

== ENCOUNTER 2024-09-22 09:03 | Emergency (ER) | payer SELFPAY ==
[2024-09-22 09:23] VITALS: BP 123/62; PULSE 75; RESP 16; TEMP 36.6; O2SAT 99; BMI 39.3
--- NOTE | 2024-09-22 10:07 | CT_ITS ---
WS: [id number] CT ABDOMEN AND PELVIS NONCONTRAST HISTORY: flank pain TECHNIQUE: Imaging performed through the abdomen and pelvis. Coronal and sagittal reformats are submi tted. All CT scans at [facility] use at least one of these dose optimization techniques: auto mated exposure control; mA and/or kV adjustment per patient size (includes targeted exams where dose is matched to clinical indication); or iterative reconstruction. DLP: 943.44 mGy.cm COMPARISON: None available. Lower thorax: Focal groundglass attenuation posterior RIGHT lower lobe. No pneumonia. Normal size hea rt. Liver: Normal size liver. No mass or bile duct dilatation. Gallbladder: Prior cholecystectomy. Pancreas: Normal size and attenuation. Normal pancreatic duct. No pancreatitis or mass. Spleen: Normal. Adrenal glands: Normal. No mass. Right kidney: Normal size kidney with no mass or hydronephrosis. Left kidney: Normal size kidney with no mass or hydronephrosis. Aorta: Normal abdominal aorta, no aneurysm or atherosclerosis. There are a few tiny central mesenteric lymph nodes. No adenopathy. GI tract: No obstruction. Normal appendix. No diverticular disease. Abdominal wall: Negative. No hernia. Pelvis: Uterus is midline. Urinary bladder is nondistended. Both ovaries are identified and normal. Osseous structures: Unremarkable. CT/CT kidney stone [id number] IMPRESSION: 1. No appendicitis. 2. No renal or ureteral calcifications or obstruction. 3. No GI tract obstruction.
--- NOTE | 2024-09-22 10:19 | ED_ITS ---
HPI - Abdominal Pain 2 General: Chief Complaint: Abdominal Pain Stated Complaint: rt side pain Time Seen by Provider: 09/22/24 09:10 History of Present Illness: 24-year-old female comes in with right f lank pain radiating to her groin is been going on for last 3 days. She denies any dysuria urgency or frequency or hematuria. Pain is progressively gotten worse. She has intermittently had some minor back problems in the past she did some lifting yesterday no real heavy lifting she tried to be careful of her back to pain it started prior to that it is a little worse today. No history of kidney stones no fever sweats or chills she previously has had a cholecystectomy done Associated Symptoms: Denies chills, dysuria and fever(s) Related Data Date of Last Menstrual Period: 09/15/24 Home Medications Medication Instructions Recorded Confirmed acetaminophen 325 mg tablet 325 mg PO QID PRN Pain 09/22/24 09/22/24 (Tylenol) Previous Rx's Medication Instructions Recorded diclofenac sodium 75 mg 75 mg PO Q12H PRN pain #20 tabs 09/22/24 tablet,delayed release prednisone 20 mg tablet 20 mg PO TID #15 tabs 09/22/24 tizanidine 4 mg tablet 4 mg PO Q6H PRN muscle spasticity 09/22/24 #20 tabs Allergies Allergy/AdvReac Type Severity Reaction Status Date / Time hydrocodone Allergy Intermediate rash Verified 05/27/24 08:48 Review of Systems 2 Const: Denies: fever(s) or chills Card: Denies: chest pain Resp: Denies: dyspnea GI: Denies: abdominal pain : Reports: flank pain; Denies: dysuria, urinary frequency or urinary urgency Musc: Denies: neck pain or back pain Skin/Breast: Denies: rash PFSH ED 2 PFSH: Medical History No pertinent family history Surgical History No pertinent past surgical history Family History Father Hypertension Lung disease Mother Stroke Social History Smoking and tobacco/nicotine status: never used tobacco/nicotine Female Reproductive History: Date of last menstrual period: 09/15/24 Physical Exam 2 Const: COMMON NORMALS: no acute distress GENERAL APPEARANCE: cooperative and comfortable ORIENTATION/CONSCIOUSNESS: Yes awake, Yes oriented to person, Yes oriented to place and Yes oriented to time HENMT: COMMON NORMALS: normocephalic, atraumatic and hearing grossly normal bilaterally HEAD & SCALP: normocephalic and atraumatic Resp: COMMON NORMALS: normal respiratory effort, No retractions, No use of accessory muscles and clear to auscultation bilaterally AUSCULTATION: clear to auscultation bilaterally Cardio: COMMON NORMALS: regular rate, regular rhythm and No murmurs present (Cardio) RATE: regular rate RHYTHM: regular rhythm GI: COMMON NORMALS: Soft to palpation and No hepatosplenomegaly present A USCULTATION: Yes normoactive bowel sounds PALPATION: Yes Soft to palpation, No Tenderness to palpation present (GI), No Guarding due to palpation present (GI) and Yes No hepatosplenomegaly present : COMMON NORMALS: Yes no CVA tenderness BLADDER/KIDNEY EXAM: Yes no CVA tenderness Back/Pelvis: COMMON NORMALS: no CVA tenderness Extremity: COMMON NORMALS: normal to inspection, capillary refill normal, no clubbing, cyanosis or edema, no calf tenderness and no pedal edema Neuro: SENSORIUM/ORIENTATION: Yes oriented to person, Yes oriented to place and Yes oriented to time Skin: COMMON NORMALS: no rashes or lesions noted GENERAL SKIN EXAM: no rashes or lesions noted Course 2 Vital Signs: Vital signs: Vital Signs Temperature 97.9 F 09/22/24 09:23 Pulse Rate 71 09/22/24 13:01 Respiratory Rate 16 09/22/24 09:23 Blood Pressure 128/76 09/22/24 13:01 Pulse Oximetry 98 09/22/24 13:01 Oxygen Delivery Me thod Room Air 09/22/24 09:23 MDM - Abdominal Pain Medical Decision Making On presentation patient's pain seems very consistent with kidney stone. She does a lot of moving around does not want to stay still constantly repositioning study at the bedside trying to find a position of comfort when she lies supine she does not have any relief. CT did not show any stone or dilated ureter urine did not show any hematuria. Suspect based on this lack of findings this may be musculoskeletal back pain I did also evaluate her she had no sign of skin rash or vesicles suggestive of varicella-zoster. Will discharge patient home on steroids muscle relaxers and anti-inflammatories follow-up as needed Lab Data 09/22/24 10:55 09/22/24 10:55 Labs/Radiology: Radiology Impressions Abdomen/Pelvis CT 09/22/24 10:07 IMPRESSION: 1. No appendicitis. 2. No renal or ureteral calcifications or obstruction. 3. No GI tract obstruction. Laboratory Results WBC 6.15 10^3/uL (3.29-11.43) 09/22/24 10:55 RBC 5.01 10^6/uL (3.85-5.65) 09/22/24 10:55 Hgb 13.90 g/dL (11.27-16.99) 09/22/24 10:55 Hct 42.5 % (36-47) 09/22/24 10:55 MCV 84.8 fl (85-98) L 09/22/24 10:55 MCH 27.7 pg (27-33) 09/22/24 10:55 MCHC 32.7 g/dL (30-55) 09/22/24 10:55 RDW 12.3 % (12.1-15.1) 09/22/24 10:55 Plt Count 346 10^3/cmm (157-399) 09/22/24 10:55 MPV 9.7 fL (7.4-10.4) 09/22/24 10:55 Neut % (Auto) 65.3 % 09/22/24 10:55 Lymph % (Auto) 27.5 % 09/22/24 10:55 [place] % (Auto) 4.6 % 09/22/24 10:55 Eos % (Auto) 1.6 % 09/22/24 10:55 Baso % (Auto) 0.7 % 09/22/24 10:55 Neut # (Auto) 4.02 10^3/uL (1.8-7.7) 09/22/24 10:55 Lymph # (Auto) 1.7 10^3/uL (0.8-4.8) 09/22/24 10:55 [place] # (Auto) 0.3 10^3/uL (0.2-0.9) 09/22/24 10:55 Eos # (Auto) 0.1 10^3/uL (0.0-0.8) 09/22/24 10:55 Baso # (Auto) 0.0 10^3/uL (0.0-0.1) 09/22/24 10:55 Nucleated RBC % (auto) 0 % 09/22/24 10:55 Nucleated RBCs # 0.0 /100WBC 09/22/24 10:55 Sodium 140 mmol/L (136-145) 09/22/24 10:55 Potassium 4.2 mmol/L (3.5-5.1) 09/22/24 10:55 Chloride 103 mmol/L (98-107) 09/22/24 10:55 Carbon Dioxide 24 mmol/L (22-29) 09/22/24 10:55 Anion Gap 17.2 (5-19) 09/22/24 10:55 BUN 7 mg/dL (6-20) 09/22/24 10:55 Creatinine 0.6 mg/dL (0.5-0.9) 09/22/24 10:55 GFR Calculation 120.8 mL/min (90-130) 09/22/24 10:55 Glucose 98 mg/dL (65-115) 09/22/24 10:55 Calculated Osmolality 288 mOsm/kg (285-295) 09/22/24 10:55 Calcium 9.1 mg/dL (8.5-10.5) 09/22/24 10:55 Total Bilirubin 0.3 mg/dL (0.15-1.2) 09/22/24 10:55 AST 16 U/L (0-32) 09/22/24 10:55 ALT 20 U/L (0-33) 09/22/24 10:55 Alkaline Phosphatase 83 U/L (35-105) 09/22/24 10:55 Total Protein 7.3 g/dL (6.6-8.7) 09/22/24 10:55 Albumin 4.4 g/dL (3.5-5.2) 09/22/24 10:55 Globulin 2.9 g/dL (1.3-4.6) 09/22/24 10:55 Lipase 26 U/L (13-60) 09/22/24 10:55 HCG, Qual Negative (Negative) 09/22/24 10:55 Urine Color Yellow (Yellow) 09/22/24 10:41 Urine Appearance Clear (CLEAR) 09/22/24 10:41 Urine pH 8.0 (5-7) A 09/22/24 10:41 Ur Specific [place] 1.009 (1.005-1.030) 09/22/24 10:41 Urine Protein Negative (Negative) 09/22/24 10:41 Urine Glucose (UA) Negative (Normal) 09/22/24 10:41 Urine Ketones Negative (Negative) 09/22/24 10:41 Urine Blood Negative (Negative) 09/22/24 10:41 Urine Nitrate Negative (Negative) 09/22/24 10:41 Urine Bilirubin Negative (Negative) 09/22/24 10:41 Urine Urobilinogen 0.2 mg/dL (Negative) 09/22/24 10:41 Ur Leukocyte Esterase Negative (Negative) 09/22/24 10:41 Urine RBC 3-5 /hpf (0-2) 09/22/24 10:41 Urine WBC 0-5 /hpf (0-5) 09/22/24 10:41 Ur Squamous Epith Cells 0-5 /hpf (0-5) 09/22/24 10:41 Amorphous Sediment Not Reportable 09/22/24 10:41 Urine Bacteria None seen /hpf (NONE) 09/22/24 10:41 Hyaline Casts 0-4 /lpf H 09/22/24 10:41 All radiology interpretation(s) finalized by discharge Discharge Plan Discharge Patient Disposition: Home Clinical Impression: Back pain Condition: Stable Prescriptions: New tizanidine 4 mg tablet 4 mg PO Q6H PRN (Reason: muscle spasticity) Qty: 20 0RF Rx Instructions: do not exceed 3 doses per 24 hrs prednisone 20 mg tablet 20 mg PO TID Qty: 15 0RF Rx Instructions: 1 p.o. 3 times daily x3 days, 1 p.o. twice daily x2 days, 1 p.o. daily x2 days diclofenac sodium 75 mg tablet,delayed release (DR/EC) 75 mg PO Q12H PRN (Reason: pain) Qty: 20 0RF No Action acetaminophen [Tylenol] 325 mg Tablet 325 mg PO QID PRN (Reason: Pain) Discharge Orders: Discharge ED (Routine); Ordered 09/22/24 Ordered By: Brice Mishra Referrals: Ashleigh Salinas FNP [Primary Care Provider] - Discharge Diet: Usual diet Discharge Activity: Increase activity as tolerated Patient Instructions: Acute Low Back Pain (ED), Lower Back Exercises (ED), Opioid Safety, Pain Management Activity Restrictions/Additional Instructions: Thank you for choosing [facility] for your healthcare needs today. It is very important that you follow up as instructed or that you return to the Emergency Department should you have concerns or if your condition changes or worsens in any way. You are seen in the emergency room for symptoms of low back pain. Evaluation emergency room showed there is no sign of bladder infection or kidney stone. You were given steroids and pain medications in the emergency room recommend using the steroid taper beginning tomorrow you are also given diclofenac and tizanidine to use as needed. If symptoms are not improving follow-up with your primary care doctor. Coding Level of Care Code ED Industrial Relations Officer for Mike Polanco
[2024-09-22] MEDS: ondansetron 2 mg/ML SDV 2 mL 4 MG IVP (10:58)
[2024-09-22] MEDS: ketorolac 30 mg/mL INJ IVP (10:58)
[2024-09-22 11:04] LABS: Basophils % 0.7 %; Eosinophils # 0.1 10^3/uL (0.0-0.8); Eosinophils % 1.6 %; Hematocrit 42.5 % (36-47); Lymphocytes # 1.7 10^3/uL (0.8-4.8); Lymphocytes % 27.5 %; Mean Corpuscular HGB Conc 32.7 g/dL (30-55); Mean Corpuscular Hemoglobin 27.7 pg (27-33); Mean Corpuscular Volume 84.8 fl (85-98); Mean Platelet Volume 9.7 fL (7.4-10.4); Monocytes # 0.3 10^3/uL (0.2-0.9); Monocytes % 4.6 %; Neutrophils # 4.02 10^3/uL (1.8-7.7); Neutrophils % 65.3 %; Nucleated Red Blood Cells % 0 %; Platelet Count 346 10^3/cmm (157-399); Red Blood Count 5.01 10^6/uL (3.85-5.65); Red Cell Distribution Width 12.3 % (12.1-15.1); White Blood Count 6.15 10^3/uL (3.29-11.43)
[2024-09-22 11:08] LABS: Bilirubin Urine Negative (Negative); Blood Urine Negative (Negative); Glucose Urine UA Negative (Normal); Ketones Urine Negative (Negative); Leukocyte Esterase Urine Negative (Negative); Nitrate Urine Negative (Negative); Protein Urine Negative (Negative); Specific Gravity, Urine 1.009 (1.005-1.030); Urine Appearance Clear (CLEAR); Urine Color Yellow (Yellow); Urobilinogen Urine 0.2 mg/dL (Negative)
[2024-09-22 11:13] LABS: Add Urine Microscopic? YES; Bacteria Urine None Seen /hpf; Hyaline Casts Urine 0-4 /lpf; Squamous Epithelial Cell Urine 0-5 /hpf (0-5); WBC Urine 0-5 /hpf (0-5)
[2024-09-22 11:20] LABS: HCG, Serum Qual Negative (Negative)
[2024-09-22 11:29] LABS: Alanine Aminotransferase 20 U/L (0-33); Albumin Level 4.4 g/dL (3.5-5.2); Alkaline Phosphatase 83 U/L (35-105); Anion Gap 17.2 (5-19); Aspartate Amino Transferase 16 U/L (0-32); Blood Urea Nitrogen 7 mg/dL (6-20); Calcium 9.1 mg/dL (8.5-10.5); Carbon Dioxide 24 mmol/L (22-29); Chloride 103 mmol/L (98-107); Creatinine Clr Calc Pharmacy 166.8142; Globulin 2.9 g/dL (1.3-4.6); Glomerular Filtration Rate 120.8 mL/min (90-130); Glucose 98 mg/dL (65-115); Lipase 26 U/L (13-60); Osmolality Calculated 288 mOsm/kg (285-295); Potassium 4.2 mmol/L (3.5-5.1); Sodium 140 mmol/L (136-145); Total Bilirubin 0.3 mg/dL (0.15-1.2); Total Protein 7.3 g/dL (6.6-8.7)
[2024-09-22] MEDS: dexamethasone 10 mg/mL INJ IVP (12:45)
[2024-09-22] MEDS: orphenadrine 30 mg/mL Inj 2 mL 60 MG IM (12:45)
[2024-09-22 13:01] VITALS: BP 128/76; PULSE 71; O2SAT 98
== END 2024-09-22 13:02 | disposition home or self-care (01) ==
PROVIDERS: Emergency Provider Family Medicine; PCP Nurse Practitioner Family
DX: M54.9 Dorsalgia, unspecified (principal)
CPT/HCPCS: 36415; 74176; 80053; 81001; 83690; 84703; 85025; 96372; 96374; 96375; 99285; J1100; J1885; J2360; J2405